=== PATIENT | male | born 1940 | race Caucasian/White ===

== ENCOUNTER 2018-12-08 13:18 | Emergency (ER) | payer MEDICARE, OTHER ==
[2018-12-08] MEDS ORDERED: Sodium Chloride 0.9% 10 ML Syringe FLUSH PRN (14:22)
[2018-12-08] MEDS ORDERED: Ondansetron 4 MG/2 ML SDV IVPUSH ONE (14:23)
--- NOTE | 2018-12-08 14:25 | EDM.PDOC ---
ED HPI GENERAL MEDICAL PROBLEM - General Chief Complaint: Gastrointestinal Problem Stated Complaint: VOMITING CANCER PATIENT Time Seen by Provider: 12/08/18 14:10 Source of Information: Reports: Patient, Family, RN Notes Reviewed History Limitations: Reports: No Limitations - History of Present Illness INITIAL COMMENTS - FREE TEXT/NARRATIVE: 78-year-old gentleman presents emergency department today complaint of nausea and vomiting, he has had intermittent abdominal pain this all started this morning he also has a history of MDS but has not had treatment for couple of weeks he states his hemoglobin usually runs about the 7 range so he has been fatigued Middle Abdomen Pain Score (Numeric/FACES): 6 - Related Data Allergies Allergy/AdvReac Type Severity Reaction Status Date / Time Penicillins AdvReac Other Verified 12/08/18 14:00 Home Meds: Home Meds Naproxen 500 mg PO BID 12/08/18 [History] Past Medical History HEENT History: Reports: Hard of Hearing, Impaired Vision Cardiovascular History: Reports: Hypertension Respiratory History: Reports: SOB Gastrointestinal History: Reports: Chronic Constipation, GERD Neurological History: Reports: Concussion Oncologic (Cancer) History: Reports: Other (See Below) Other Oncologic History: MDS - Past Surgical History Head Surgeries/Procedures: Reports: None HEENT Surgical History: Reports: Cataract Surgery Cardiovascular Surgical History: Reports: None Respiratory Surgical History: Reports: None GI Surgical History: Reports: None Neurological Surgical History: Reports: None Oncologic Surgical History: Reports: None Dermatological Surgical History: Reports: None Social & Family History - Tobacco Use Smoking Status *Q: Never Smoker Second Hand Smoke Exposure: No - Caffeine Use Caffeine Use: Reports: Coffee - Recreational Drug Use Recreational Drug Use: No ED ROS GENERAL - Review of Systems Review Of Systems: See Below Constitutional: Reports: Weakness, Fatigue. Denies: Fever, Chills HEENT: Reports: No Symptoms Respiratory: Reports: No Symptoms Cardiovascular: Reports: No Symptoms GI/Abdominal: Reports: Abdominal Pain, Nausea, Vomiting (Done on this particular ) : Reports: No Symptoms Musculoskeletal: Reports: No Symptoms ED EXAM, GI/ABD - Physical Exam Exam: See Below Exam Limited By: No Limitations General Appearance: Alert, WD/WN, No Apparent Distress Respiratory/Chest: No Respiratory Distress, Lungs Clear, Normal Breath Sounds, No Accessory Muscle Use, Chest Non-Tender Cardiovascular: Regular Rate, Rhythm, No Murmur GI/Abdominal Exam: Soft, Non-Tender Course - Vital Signs Last Recorded V/S: Last Vital Signs Temp 98.6 F 12/08/18 14:01 Pulse 81 12/08/18 16:11 Resp 16 12/08/18 15:25 BP 126/55 L 12/08/18 16:11 Pulse Ox 99 12/08/18 15:25 - Orders/Labs/Meds Orders: Active Orders 24 hr Category Date Time Status Peripheral IV Care [RC] . DIRECTED Care 12/08/18 14:22 Active Lactated Ringers [Ringers, Lactated] 1,000 ml Med 12/08/18 14:30 Active IV ASDIRECTED Sodium Chloride 0.9% [Saline Flush] Med 12/08/18 14:22 Active 10 ml FLUSH ASDIRECTED PRN Peripheral IV Insertion Adult [OM.PC] Urgent Oth 12/08/18 14:22 Ordered Medication Orders Lactated Ringer's (Ringers, Lactated) 1,000 mls @ 999 mls/hr IV ASDIRECTED PALLAVI Last Admin: 12/08/18 14:42 Dose: 999 mls/hr Sodium Chloride (Saline Flush) 10 ml FLUSH ASDIRECTED PRN PRN Reason: Keep Vein Open Last Admin: 12/08/18 14:41 Dose: 10 ml Labs: Laboratory Tests 12/08/18 12/08/18 12/08/18 Range/Units 14:39 14:39 14:39 WBC 5.9 (4.5-11.0) K/uL RBC 1.87 L (4.30-5.90) M/uL Hgb 6.1 L* (12.0-15.0) g/dL Hct 20.1 L (40.0-54.0) % MCV 108 H (80-98) fL MCH 33 H (27-31) pg MCHC 30 L (32-36) % Plt Count 239 (150-400) K/uL Neut % (Auto) 76 H (36-66) % Lymph % (Auto) 13 L (24-44) % Dillon % (Auto) 11 H (2-6) % Eos % (Auto) 0 L (2-4) % Baso % (Auto) 0 (0-1) % Sodium 140 (140-148) mmol/L Potassium 4.6 (3.6-5.2) mmol/L Chloride 105 (100-108) mmol/L Carbon Dioxide 25 (21-32) mmol/L Anion Gap 10.4 (5.0-14.0) mmol/L BUN 54 H (7-18) mg/dL Creatinine 1.7 H (0.8-1.3) mg/dL Est Cr Clr Drug Dosing 32.40 mL/min Estimated GFR (MDRD) 39 L (>60) Glucose 130 H (74-106) mg/dL Lactic Acid 2.8 H (0.4-2.0) mmol/L Calcium 8.9 (8.5-10.1) mg/dL Total Bilirubin 0.6 (0.2-1.0) mg/dL AST 13 L (15-37) U/L ALT 17 (12-78) U/L Alkaline Phosphatase 59 (46-116) U/L Troponin I < 0.017 (0.000-0.056) ng/mL Total Protein 6.0 L (6.4-8.2) g/dL Albumin 3.5 (3.4-5.0) g/dL Globulin 2.5 (2.3-3.5) g/dL Albumin/Globulin Ratio 1.4 (1.2-2.2) Urine Color (YELLOW) Urine Appearance (CLEAR) Urine pH (5.0-8.0) Ur Specific [place] (1.008-1.030) Urine Protein (NEGATIVE) mg/dL Urine Glucose (UA) (NEGATIVE) mg/dL Urine Ketones (NEGATIVE) mg/dL Urine Occult Blood (NEGATIVE) Urine Nitrite (NEGATIVE) Urine Bilirubin (NEGATIVE) Urine Urobilinogen (0.2-1.0) EU/dL Ur Leukocyte Esterase (NEGATIVE) Urine RBC (0-5) Urine WBC (0-5) Ur Epithelial Cells Amorphous Sediment Urine Bacteria Urine Mucus 12/08/18 Range/Units 15:25 WBC (4.5-11.0) K/uL RBC (4.30-5.90) M/uL Hgb (12.0-15.0) g/dL Hct (40.0-54.0) % MCV (80-98) fL MCH (27-31) pg MCHC (32-36) % Plt Count (150-400) K/uL Neut % (Auto) (36-66) % Lymph % (Auto) (24-44) % Dillon % (Auto) (2-6) % Eos % (Auto) (2-4) % Baso % (Auto) (0-1) % Sodium (140-148) mmol/L Potassium (3.6-5.2) mmol/L Chloride (100-108) mmol/L Carbon Dioxide (21-32) mmol/L Anion Gap (5.0-14.0) mmol/L BUN (7-18) mg/dL Creatinine (0.8-1.3) mg/dL Est Cr Clr Drug Dosing mL/min Estimated GFR (MDRD) (>60) Glucose (74-106) mg/dL Lactic Acid (0.4-2.0) mmol/L Calcium (8.5-10.1) mg/dL Total Bilirubin (0.2-1.0) mg/dL AST (15-37) U/L ALT (12-78) U/L Alkaline Phosphatase (46-116) U/L Troponin I (0.000-0.056) ng/mL Total Protein (6.4-8.2) g/dL Albumin (3.4-5.0) g/dL Globulin (2.3-3.5) g/dL Albumin/Globulin Ratio (1.2-2.2) Urine Color Yellow (YELLOW) Urine Appearance Clear (CLEAR) Urine pH 5.5 (5.0-8.0) Ur Specific [place] 1.030 (1.008-1.030) Urine Protein Negative (NEGATIVE) mg/dL Urine Glucose (UA) Normal (NEGATIVE) mg/dL Urine Ketones Negative (NEGATIVE) mg/dL Urine Occult Blood Negative (NEGATIVE) Urine Nitrite Negative (NEGATIVE) Urine Bilirubin Negative (NEGATIVE) Urine Urobilinogen Normal (0.2-1.0) EU/dL Ur Leukocyte Esterase Small (NEGATIVE) Urine RBC Not seen (0-5) Urine WBC 5-10 H (0-5) Ur Epithelial Cells Not seen Amorphous Sediment Not seen Urine Bacteria Moderate Urine Mucus Not seen Meds: Medications Generic Name Dose Route Start Last Admin Trade Name Freq PRN Reason Stop Dose Admin Lactated Ringer's 1,000 mls @ 999 mls/hr 12/08/18 14:30 12/08/18 14:42 Ringers, Lactated IV 999 mls/hr ASDIRECTED PALLAVI Administration Sodium Chloride 10 ml 12/08/18 14:22 12/08/18 14:41 Saline Flush FLUSH 10 ml ASDIRECTED PRN Administration Keep Vein Open Discontinued Medications Generic Name Dose Route Start Last Admin Trade Name Yasmani PRN Reason Stop Dose Admin Chlorpromazine HCl 25 mg 12/08/18 16:20 12/08/18 16:38 Thorazine IV 12/08/18 16:21 25 mg ONETIME ONE Administration Ondansetron HCl 4 mg 12/08/18 14:23 12/08/18 14:40 Zofran IVPUSH 12/08/18 14:24 4 mg ONETIME ONE Administration Departure - Departure Time of Disposition: 16:32 Disposition: Home, Self-Care 01 Condition: Poor Clinical Impression: Myelodysplastic syndrome, Severe anemia - Discharge Information Referrals: PCP,None [Primary Care Provider] - Forms: ED Department Discharge Additional Instructions: Please contact hospice if needed their services, call return to the emergency department worsening of symptoms - My Orders Last 24 Hours: My Active Orders 12/08/18 14:22 Peripheral IV Care [RC] . DIRECTED Sodium Chloride 0.9% [Saline Flush] 10 ml FLUSH ASDIRECTED PRN Peripheral IV Insertion Adult [OM.PC] Urgent 12/08/18 14:30 Lactated Ringers [Ringers, Lactated] 1,000 ml IV ASDIRECTED - Assessment/Plan Last 24 Hours: My Active Orders 12/08/18 14:22 Peripheral IV Care [RC] . DIRECTED Sodium Chloride 0.9% [Saline Flush] 10 ml FLUSH ASDIRECTED PRN Peripheral IV Insertion Adult [OM.PC] Urgent 12/08/18 14:30 Lactated Ringers [Ringers, Lactated] 1,000 ml IV ASDIRECTED Plan: Assessment Acuity = acute Site and laterality = myelodysplastic syndrome Etiology = unknown etiology Manifestations = weakness, severe anemia, hiccups Location of injury = Home Lab values = hemoglobin 6.1 consistent with Macker chromic anemia creatinine elevated 1.2 consistent chronic renal for stage G IIIB lactic acid elevated 2.8 consistent lactic acidosis troponin was negative urinalysis reveals WBC of 5-10 consistent with pyuria x-ray shows moderate amount of stool otherwise no acute process Plan I did discuss options with him including transfusion hospital admission he declined at this time would prefer to move to comfort care he was given Zofran for his nausea and will try Thorazine for the hiccups hospice consult was also initiated] This note was dictated using Collective voice recognition software please call with any questions on syntax or grammar.
[2018-12-08] MEDS ORDERED: Lactated Ringers 1,000 ML IV SCH (14:30)
--- NOTE | 2018-12-08 15:30 | CRLCR ---
INDICATION: Pain. FINDINGS: A single portable view of the abdomen shows dilated loops of bowel. Moderate amount of stool in the colon. No evidence of free intraperitoneal air. No other bony or soft tissue abnormalities identified. IMPRESSION: Nonobstructive nonspecific bowel gas pattern. Dictated by Jimmy Bowles MD @ 12/08/2018 3:28:48 PM Dictated by: Jimmy Bowles MD @ 12/08/2018 15:28:55 (Electronically Signed)
[2018-12-08] MEDS ORDERED: chlorproMAZINE 50 MG/2 ML Amp IV ONE (16:20)
== END 2018-12-08 17:36 | disposition home or self-care (01) ==
LOC: JP.ED 13:18
DX: D46.9 Myelodysplastic syndrome, unspecified (principal); I10 Essential (primary) hypertension; Z88.0 Allergy status to penicillin; Z79.899 Other long term (current) drug therapy
CPT/HCPCS: 36415; 74018; 80053; 81001; 83605; 84484; 85025; 96361; 96374; 96375; 99284; J2405; J3230; J7120